=== PATIENT | male | born 1960 | race African-American/Black ===

== ENCOUNTER 2017-01-19 12:18 | Emergency (ER) | payer SELFPAY ==
--- NOTE | 2017-01-19 14:17 | RAD ---
TWO VIEWS CHEST: Comparison: 12-04-12 History: Productive cough and headache. FINDINGS: Two views of the chest show normal sized cardiomediastinal silhouette. There is no evidence of consol idation, mass, or pleural effusion. The bones are unremarkable. IMPRESSION: No evidence of acute cardiopulmonary disease. POS: [facility]
== END 2017-01-19 14:02 | disposition home or self-care (01) ==
LOC: ERS 12:18
DX: J06.9 Acute upper respiratory infection, unspecified (principal); F32.9 Major depressive disorder, single episode, unspecified; I10 Essential (primary) hypertension; Z79.899 Other long term (current) drug therapy
CPT/HCPCS: 71020

== ENCOUNTER 2017-02-21 14:19 | Emergency (ER) | payer SELFPAY ==
--- NOTE | 2017-02-21 15:01 | RAD ---
THREE VIEWS OF RIGHT ANKLE: DATE: 02/21/17. COMPARISON: 01/17/16. HISTORY: Slipped and fell, pain. FINDINGS: There is a stable round metallic structure associated with the cortex of the medial malleolus. No fr acture or evidence of dislocation seen. IMPRESSION: No acute osseous abnormality. POS: [facility]
== END 2017-02-21 16:05 | disposition home or self-care (01) ==
LOC: ERS 14:19
DX: S96.911A Strain of unspecified muscle and tendon at ankle and foot level, right foot, initial encounter (principal); F32.9 Major depressive disorder, single episode, unspecified; I10 Essential (primary) hypertension; Z79.899 Other long term (current) drug therapy; W19.XXXA Unspecified fall, initial encounter

== ENCOUNTER 2017-03-19 23:26 | Emergency (ER) | payer SELFPAY ==
[2017-03-20 00:18] LABS: #Basophils 0.1 thou/uL (0.0-0.2); #Eosinphils 0.4 thou/uL (0.0-0.7); #Lymphocytes 2.8 thou/uL (1.20-3.40); #Monocytes 0.5 thou/uL (0.11-0.59); #Neutrophils 4.7 thou/uL (1.40-6.50); %Basophils 0.8 % (0.0-1.0); %Eosinophils 4.5 % (0.0-10.0); %Lymphocytes 32.9 % (21.0-51.0); %Monocytes 6.3 % (0.0-10.0); %Neutrophils 55.5 % (42.0-75.0); Hemoglobin 16.4 g/dL (14.0-18.0); Mean Corpuscular HGB CONC 33.6 g/dL (32.0-36.0); Mean Corpuscular Hemoglobin 32.9 pg (27.0-31.0); Mean Corpuscular Volume 98.1 fl (80.0-94.0); Mean Platelet Volume 7.8 fL (7.4-10.4); Platelet Count 192 thou/uL (130-400); RBC Distribution Width 12.5 % (11.5-14.5); Red Blood Cell (RBC) Count 4.97 mill/uL (4.70-6.10); White Blood Cell (WBC) Count 8.5 thou/uL (4.8-10.8)
[2017-03-20] MEDS ORDERED: Proparacaine 0.5% Opth 15 ML BOT ONE (00:23)
[2017-03-20] MEDS ORDERED: Nitroglycerin 0.4 MG TAB (25 Tab Bottle) ONE (00:31)
[2017-03-20 00:34] LABS: ALT (SGPT) 15 U/L (8-55); AST (SGOT) 22 U/L (5-34); Albumin 3.9 g/dL (3.5-5.0); Alkaline Phosphatase 74 U/L (40-150); Anion Gap 11 mmol/L (10-20); BUN (Urea Nitrogen) 21 mg/dL (8.4-25.7); Bilirubin, Total 0.4 mg/dL (0.2-1.2); Calc. Creatinine Clearance 0 mL/min (70-130); Calcium 9.2 mg/dL (7.8-10.44); Carbon Dioxide 25 mmol/L (22-29); Chloride 108 mmol/L (98-107); Estimated GFR-MDRD 79; Globulin 3.3 g/dL (2.4-3.5); Glucose 92 mg/dL (70-105); Potassium 4.5 mmol/L (3.5-5.1); Protein, Total 7.2 g/dL (6.0-8.3); Sodium 139 mmol/L (136-145)
[2017-03-20 00:38] LABS: CKMB 1.4 ng/mL (0-6.6)
[2017-03-20] MEDS ORDERED: hydrALAZINE 20 MG/ML VIAL ONE (01:45)
[2017-03-20] MEDS ORDERED: diphenhydrAMINE 50 MG/ML VIAL ONE (02:19)
[2017-03-20] MEDS ORDERED: Metoclopramide HCl 10 MG/2 ML VIAL ONE (02:19)
[2017-03-20 02:57] LABS: Troponin I Less than 0.010 ng/mL (< 0.028)
[2017-03-20] MEDS ORDERED: Lisinopril 10 MG TAB ONE (03:46)
[2017-03-20] MEDS ORDERED: Ketorolac Tromethamine 30 MG/ML VIAL ONE (04:09)
--- NOTE | 2017-03-20 07:37 | RAD ---
RADIOGRAPH CHEST 1 VIEW: HISTORY: 56-year-old male with chest pain. FINDINGS: There are no air space densities, pulmonary edema, pneumothorax, or cardiomegaly. The lateral costop hrenic angles are sharp. IMPRESSION: No acute cardiopulmonary findings. jn [] POS: [facility]
--- NOTE | 2017-03-20 08:14 | CT ---
PRELIMINARY REPORT/[facility]/EMERGENCY AFTER HOURS PROCEDURE: EXAM: CT Head Without Intravenous Contrast CLINICAL HISTORY: 56 years old, male; Pain; Headache; Patient HX: Er 9; 56 yo m presents to ed C/O sudden onset worseni ng l eye pain that started yesterday morning. Pt also reports headache and jaw pain since yesterday, and reports short episode of chest pain today which has since resolved. Denies n/v, denies fever. TECHNIQUE: Axial computed tomography images of the head/brain without intravenous contrast. COMPARISON: No relevant prior studies available. FINDINGS: Brain: Mild volume loss No hemorrhage. No significant white matter disease. No edema. Ventricles: A cavum septum pellucidum at vergae is noted, a normal variant.No ventriculomegaly. Bones/joints: Unremarkable. No acute fracture. Soft tissues: Unremarkable. Sinuses: minimal mucosal thickening. No acute sinusitis. Mastoid air cells: Unremarkable as visualized. No mastoid effusion. IMPRESSION: No intracranial hemorrhage.Please see discussion above. Thank you for allowing us to participate in the care of your patient. Dictated and Authenticated by: Vasquez Gonzalez MD 03/20/2017 12:53 AM Central Time ([place] & [place]) FINAL REPORT EMERGENCY HOURS STUDY: CT BRAIN NONCONTRAST: HISTORY: A 56-year-old male with sudden-onset headache. FINDINGS: There is no midline shift or any other mass effect. There is no evidence of acute intracranial hemor rhage, large cortical infarct, obstructive hydrocephalus, or extraaxial fluid collection. The calvar ium is intact. This report agrees with preliminary report by [facility]. IMPRESSION: No acute intracranial findings. jn [] POS: [facility]
== END 2017-03-20 05:32 | disposition home or self-care (01) ==
LOC: ERS 23:26
DX: K02.9 Dental caries, unspecified (principal); R07.89 Other chest pain; R51 Headache; K03.81 Cracked tooth; I10 Essential (primary) hypertension; F32.9 Major depressive disorder, single episode, unspecified; Z79.899 Other long term (current) drug therapy
CPT/HCPCS: 36415; 70450; 71045; 80053; 82553; 83880; 84484; 85025; 93005; 96374; 96375; J0360; J1200; J1885; J2270; J2765

== ENCOUNTER 2017-05-22 10:47 | Emergency (ER) | payer OTHER, SELFPAY ==
[2017-05-22] MEDS ORDERED: Ketorolac Tromethamine 30 MG/ML VIAL ONE (12:19)
[2017-05-22] MEDS ORDERED: Acetaminophen 500 MG TAB ONE ×2 (13:38→13:39)
[2017-05-22] MEDS ORDERED: Lisinopril 10 MG TAB ONE (13:38)
--- NOTE | 2017-05-22 13:59 | RAD ---
TWO VIEWS OF THE RIGHT TIBIA/FIBULA. COMPARISON: None. HISTORY: Right leg pain. FINDINGS: Two views of the right tibia/fibula show no evidence of acute fracture or dislocation. A radiopaque structure adjacent to the medial malleolus is likely from prior surgery. No focal soft tissue swelli ng is seen. IMPRESSION: No evidence of acute osseous abnormality. POS: [facility]
--- NOTE | 2017-05-22 14:01 | RAD ---
THREE VIEWS LUMBOSACRAL SPINE: COMPARISON: 06/04/16. HISTORY: Chronic back pain. FINDINGS: Three views of the lumbosacral spine shows normal height and alignment of the vertebral bodies and in tervertebral disks without fracture or subluxation. No significant degenerative changes are seen. N o change has compared to the prior radiograph. IMPRESSION: Unremarkable exam. POS: [facility]
== END 2017-05-22 13:46 | disposition home or self-care (01) ==
LOC: ERS 10:47
DX: M54.5 Low back pain (principal); L98.9 Disorder of the skin and subcutaneous tissue, unspecified; I10 Essential (primary) hypertension; F32.9 Major depressive disorder, single episode, unspecified; Z79.899 Other long term (current) drug therapy
CPT/HCPCS: 72100; 96372; J1885

== ENCOUNTER 2017-06-29 13:48 | Emergency (ER) | payer SELFPAY | END 2017-06-29 14:04 | disposition left against medical advice (07) | LOC: ERS 13:48 | DX: Z53.21 Procedure and treatment not carried out due to patient leaving prior to being seen by health care provider (principal) ==

== ENCOUNTER 2017-07-12 12:31 | Emergency (ER) | payer SELFPAY | END 2017-07-12 13:18 | disposition home or self-care (01) | LOC: ERS 12:31 | DX: M54.12 Radiculopathy, cervical region (principal); M54.41 Lumbago with sciatica, right side; I10 Essential (primary) hypertension; F32.9 Major depressive disorder, single episode, unspecified | CPT/HCPCS: 99283 ==

== ENCOUNTER 2017-09-10 15:38 | Emergency (ER) | payer SELFPAY | END 2017-09-10 16:43 | disposition home or self-care (01) | LOC: ERS 15:38 | DX: L02.212 Cutaneous abscess of back [any part, except buttock and flank] (principal); L02.01 Cutaneous abscess of face; I10 Essential (primary) hypertension; F32.9 Major depressive disorder, single episode, unspecified; Z79.899 Other long term (current) drug therapy | CPT/HCPCS: 10061 ==

== ENCOUNTER 2017-10-25 15:06 | Emergency (ER) | payer SELFPAY ==
[2017-10-25] MEDS ORDERED: Lidocaine 1% w/Epinephrine 1:100K 20 ML VIAL ONE (17:09)
[2017-10-25] MEDS ORDERED: Adacel (T-DAP) 0.5 ML VIAL ONE (17:50)
[2017-10-25] MEDS ORDERED: Lisinopril 10 MG TAB ONE (18:08)
== END 2017-10-25 18:10 | disposition home or self-care (01) ==
LOC: ERS 15:06
DX: L02.31 Cutaneous abscess of buttock (principal); I10 Essential (primary) hypertension; F32.9 Major depressive disorder, single episode, unspecified; Z79.899 Other long term (current) drug therapy
CPT/HCPCS: 10061; 87070; 87077; 87186; 87205; 90471; 90715; J2001

== ENCOUNTER 2017-11-29 05:03 | Emergency (ER) | payer SELFPAY ==
[2017-11-29] MEDS ORDERED: Lidocaine 1% w/Epinephrine 1:100K 20 ML VIAL ONE (05:20)
[2017-11-29] MEDS ORDERED: Bacitracin Zinc 1 Packet ONE (05:42)
[2017-11-29] MEDS ORDERED: Acetaminophen 500 MG TAB ONE (05:47)
== END 2017-11-29 06:00 | disposition home or self-care (01) ==
LOC: ERS 05:06
DX: S61.412A Laceration without foreign body of left hand, initial encounter (principal); I10 Essential (primary) hypertension; F32.9 Major depressive disorder, single episode, unspecified; Z79.899 Other long term (current) drug therapy; W25.XXXA Contact with sharp glass, initial encounter
CPT/HCPCS: 12002; J2001

== ENCOUNTER 2018-02-26 12:13 | Emergency (ER) | payer SELFPAY ==
[2018-02-26 13:17] LABS: #Basophils 0.1 thou/uL (0.0-0.2); #Eosinphils 0.4 thou/uL (0.0-0.7); #Lymphocytes 2.1 thou/uL (1.20-3.40); #Monocytes 0.5 thou/uL (0.11-0.59); #Neutrophils 5.6 thou/uL (1.40-6.50); %Basophils 1.5 % (0.0-1.0); %Eosinophils 4.8 % (0.0-10.0); %Lymphocytes 23.5 % (21.0-51.0); %Monocytes 6.2 % (0.0-10.0); %Neutrophils 64.1 % (42.0-75.0); Hemoglobin 15.1 g/dL (14.0-18.0); Mean Corpuscular HGB CONC 32.7 g/dL (32.0-36.0); Mean Corpuscular Hemoglobin 31.9 pg (27.0-31.0); Mean Corpuscular Volume 97.5 fL (78.0-98.0); Mean Platelet Volume 7.6 fL (7.4-10.4); Platelet Count 228 thou/uL (130-400); RBC Distribution Width 12.2 % (11.5-14.5); Red Blood Cell (RBC) Count 4.72 mill/uL (4.70-6.10); White Blood Cell (WBC) Count 8.8 thou/uL (4.8-10.8)
[2018-02-26 13:41] LABS: ALT (SGPT) 16 U/L (8-55); AST (SGOT) 21 U/L (5-34); Albumin 3.8 g/dL (3.5-5.0); Alkaline Phosphatase 72 U/L (40-150); Anion Gap 13 mmol/L (10-20); BUN (Urea Nitrogen) 15 mg/dL (8.4-25.7); Bilirubin, Total 0.3 mg/dL (0.2-1.2); Calc. Creatinine Clearance 0 mL/min (70-130); Calcium 8.9 mg/dL (7.8-10.44); Carbon Dioxide 21 mmol/L (22-29); Chloride 108 mmol/L (98-107); Estimated GFR-MDRD 78; Globulin 2.9 g/dL (2.4-3.5); Glucose 85 mg/dL (70-105); Potassium 4.4 mmol/L (3.5-5.1); Protein, Total 6.7 g/dL (6.0-8.3); Sodium 138 mmol/L (136-145)
[2018-02-26] MEDS ORDERED: Ondansetron PF 4 MG/2 ML Vial ONE (14:16)
[2018-02-26] MEDS ORDERED: Ondansetron ODT 4 MG TAB ONE (14:16)
--- NOTE | 2018-02-26 15:21 | RAD ---
PA AND LATERAL VIEWS CHEST: HISTORY: Vomiting and diarrhea. FINDINGS: Comparison is made with the exam of 03/19/2017. The heart size is normal. The lungs are expanded without focal areas of consolidation, pneumothorace s, or pleural effusions. No acute osseous abnormalities are seen. IMPRESSION: No radiographic evidence of acute cardiopulmonary process. POS: [facility]
== END 2018-02-26 15:10 | disposition home or self-care (01) ==
LOC: ERS 12:13
DX: R11.2 Nausea with vomiting, unspecified (principal); R05 Cough; R19.7 Diarrhea, unspecified; F43.10 Post-traumatic stress disorder, unspecified; F32.9 Major depressive disorder, single episode, unspecified; I10 Essential (primary) hypertension; Z79.899 Other long term (current) drug therapy
CPT/HCPCS: 36415; 71046; 80053; 85025; J2405; Q0162

== ENCOUNTER 2018-05-12 12:47 | Emergency (ER) | payer SELFPAY ==
[2018-05-12] MEDS ORDERED: Nitroglycerin 0.4 MG TAB 1 EACH ONE (13:15)
[2018-05-12] MEDS ORDERED: Nitroglycerin 2% Ointment 1 INCH/1 GM Packet ONE (13:15)
[2018-05-12] MEDS ORDERED: Aspirin Chewable 81 MG TAB ONE (13:15)
[2018-05-12 13:16] LABS: #Basophils 0.1 thou/uL (0.0-0.2); #Eosinphils 0.4 thou/uL (0.0-0.7); #Lymphocytes 2.1 thou/uL (1.20-3.40); #Monocytes 0.6 thou/uL (0.11-0.59); #Neutrophils 11.5 thou/uL (1.40-6.50); %Basophils 0.7 % (0.0-1.0); %Eosinophils 2.4 % (0.0-10.0); %Lymphocytes 14.2 % (21.0-51.0); %Monocytes 3.9 % (0.0-10.0); %Neutrophils 78.9 % (42.0-75.0); Hemoglobin 15.8 g/dL (14.0-18.0); Mean Corpuscular HGB CONC 33.5 g/dL (32.0-36.0); Mean Corpuscular Hemoglobin 32.6 pg (27.0-31.0); Mean Corpuscular Volume 97.4 fL (78.0-98.0); Mean Platelet Volume 7.9 fL (7.4-10.4); Platelet Count 220 thou/uL (130-400); RBC Distribution Width 12.6 % (11.5-14.5); Red Blood Cell (RBC) Count 4.85 mill/uL (4.70-6.10); White Blood Cell (WBC) Count 14.6 thou/uL (4.8-10.8)
--- NOTE | 2018-05-12 13:22 | RAD ---
FRadiograph chest one view: HISTORY: 57-year-old male with acute chest pain FINDINGS: The visualized lung easley are clear. The cardiomediastinal silhouette is normal. No pneumothorax. IMPRESSION: No acute cardiopulmonary findings.
[2018-05-12 13:35] LABS: ALT (SGPT) 16 U/L (8-55); AST (SGOT) 23 U/L (5-34); Albumin 3.6 g/dL (3.5-5.0); Alkaline Phosphatase 52 U/L (40-150); Anion Gap 13 mmol/L (10-20); BUN (Urea Nitrogen) 9 mg/dL (8.4-25.7); Bilirubin, Total 0.7 mg/dL (0.2-1.2); CK (CPK) 153 U/L (30-200); Calc. Creatinine Clearance 0 mL/min (70-130); Calcium 8.8 mg/dL (7.8-10.44); Carbon Dioxide 22 mmol/L (22-29); Chloride 107 mmol/L (98-107); Estimated GFR-MDRD Greater than 90; Globulin 2.9 g/dL (2.4-3.5); Glucose 84 mg/dL (70-105); Lipase 9 U/L (8-78); Protein, Total 6.5 g/dL (6.0-8.3); Sodium 137 mmol/L (136-145)
--- NOTE | 2018-05-12 14:06 | CT ---
FCT abdomen with contrast CT pelvis with contrast: 05/12/2018 at 1:33 PM HISTORY: 57-year-old male with diffuse abdominal pain FINDINGS: The appendix, bilateral kidneys, adrenals, pancreas, liver, abdominal aorta, and urinary bladder, are normal. Multiple diverticula throughout the entire colon. No evidence of diverticulitis. No small fan wel dilation. No ascites or pneumoperitoneum. No consolidation at lung bases. No pleural effusion. IMPRESSION: 1. Pancolonic diverticulosis without diverticulitis. 2. Otherwise negative.
[2018-05-12] MEDS ORDERED: Ondansetron PF 4 MG/2 ML Vial ONE (14:10)
[2018-05-12] MEDS ORDERED: Iopamidol 370 76% 100 ML VIAL ONE (15:16)
== END 2018-05-12 17:46 | disposition home or self-care (01) ==
LOC: ERS 12:47
DX: R07.9 Chest pain, unspecified (principal); I10 Essential (primary) hypertension; F32.9 Major depressive disorder, single episode, unspecified; F43.10 Post-traumatic stress disorder, unspecified; F17.210 Nicotine dependence, cigarettes, uncomplicated; Z79.899 Other long term (current) drug therapy
CPT/HCPCS: 36415; 71045; 74177; 80053; 82550; 83690; 84484; 85025; 93005; 94760; 96361; 96374; J2405; Q9967

== ENCOUNTER 2018-07-24 10:11 | Emergency (ER) | payer SELFPAY ==
[2018-07-24 11:09] LABS: #Basophils 0.1 thou/uL (0.0-0.2); #Eosinphils 0.4 thou/uL (0.0-0.7); #Monocytes 0.4 thou/uL (0.11-0.59); #Neutrophils 3.8 thou/uL (1.40-6.50); %Basophils 1.2 % (0.0-1.0); %Eosinophils 6.3 % (0.0-10.0); %Lymphocytes 29.7 % (21.0-51.0); %Monocytes 6.6 % (0.0-10.0); %Neutrophils 56.3 % (42.0-75.0); Hemoglobin 15.2 g/dL (14.0-18.0); Mean Corpuscular HGB CONC 32.1 g/dL (32.0-36.0); Mean Corpuscular Hemoglobin 31.6 pg (27.0-31.0); Mean Corpuscular Volume 98.2 fL (78.0-98.0); Mean Platelet Volume 7.6 fL (7.4-10.4); Platelet Count 208 thou/uL (130-400); RBC Distribution Width 12.2 % (11.5-14.5); Red Blood Cell (RBC) Count 4.82 mill/uL (4.70-6.10); White Blood Cell (WBC) Count 6.7 thou/uL (4.8-10.8)
[2018-07-24 11:35] LABS: ALT (SGPT) 14 U/L (8-55); AST (SGOT) 18 U/L (5-34); Albumin 3.4 g/dL (3.5-5.0); Alkaline Phosphatase 73 U/L (40-150); Anion Gap 10 mmol/L (10-20); BUN (Urea Nitrogen) 18 mg/dL (8.4-25.7); Bilirubin, Total 0.3 mg/dL (0.2-1.2); Calc. Creatinine Clearance 0 mL/min (70-130); Calcium 8.9 mg/dL (7.8-10.44); Carbon Dioxide 26 mmol/L (22-29); Chloride 110 mmol/L (98-107); Estimated GFR-MDRD 77; Globulin 2.4 g/dL (2.4-3.5); Glucose 80 mg/dL (70-105); Lipase 51 U/L (8-78); Potassium 4.7 mmol/L (3.5-5.1); Protein, Total 5.8 g/dL (6.0-8.3); Sodium 141 mmol/L (136-145)
[2018-07-24] MEDS ORDERED: Ondansetron PF 4 MG/2 ML Vial ONE (11:38)
[2018-07-24] MEDS ORDERED: Ketorolac Tromethamine 30 MG/ML VIAL ONE (11:38)
== END 2018-07-24 15:05 | disposition home or self-care (01) ==
LOC: ERS 10:11
DX: R11.2 Nausea with vomiting, unspecified (principal); R19.7 Diarrhea, unspecified; I10 Essential (primary) hypertension; F32.9 Major depressive disorder, single episode, unspecified; F17.210 Nicotine dependence, cigarettes, uncomplicated; Z79.899 Other long term (current) drug therapy
CPT/HCPCS: 36415; 80053; 83690; 85025; 96361; 96374; 96375; J1885; J2405

== ENCOUNTER 2019-03-25 15:06 | Emergency (ER) | payer SELFPAY ==
[~2019-03-25 15:06] MED LIST: Iopamidol-370 76% 500 ML 1 ML ONE
[2019-03-25 16:29] LABS: #Basophils 0.1 thou/uL (0.0-0.2); #Eosinphils 0.4 thou/uL (0.0-0.7); #Lymphocytes 2.1 thou/uL (1.20-3.40); #Monocytes 0.5 thou/uL (0.11-0.59); #Neutrophils 3.5 thou/uL (1.40-6.50); %Basophils 1.1 % (0.0-1.0); %Eosinophils 6.3 % (0.0-10.0); %Lymphocytes 31.3 % (21.0-51.0); %Monocytes 7.6 % (0.0-10.0); %Neutrophils 53.8 % (42.0-75.0); Hemoglobin 15.6 g/dL (14.0-18.0); Mean Corpuscular HGB CONC 34.1 g/dL (32.0-36.0); Mean Corpuscular Hemoglobin 33.2 pg (27.0-31.0); Mean Corpuscular Volume 97.2 fL (78.0-98.0); Mean Platelet Volume 7.7 fL (7.4-10.4); Platelet Count 249 thou/uL (130-400); RBC Distribution Width 12.2 % (11.5-14.5); Red Blood Cell (RBC) Count 4.71 mill/uL (4.70-6.10); White Blood Cell (WBC) Count 6.6 thou/uL (4.8-10.8)
[2019-03-25 16:49] LABS: ALT (SGPT) 34 U/L (8-55); AST (SGOT) 38 U/L (5-34); Alkaline Phosphatase 75 U/L (40-110); Anion Gap 10 mmol/L (10-20); BUN (Urea Nitrogen) 17 mg/dL (8.4-25.7); Bilirubin, Total 0.5 mg/dL (0.2-1.2); Calc. Creatinine Clearance 0 mL/min (70-130); Calcium 8.9 mg/dL (7.8-10.44); Carbon Dioxide 25 mmol/L (22-29); Chloride 107 mmol/L (98-107); Estimated GFR-MDRD 59; Globulin 3.5 g/dL (2.4-3.5); Glucose 86 mg/dL (70-105); Lipase 13 U/L (8-78); Potassium 4.3 mmol/L (3.5-5.1); Protein, Total 7.5 g/dL (6.0-8.3); Sodium 138 mmol/L (136-145)
[2019-03-25] MEDS ORDERED: Ketorolac Tromethamine 30 MG/ML VIAL ONE (19:17)
[2019-03-25] MEDS ORDERED: Ondansetron PF 4 MG/2 ML Vial ONE (19:17)
--- NOTE | 2019-03-25 20:46 | CT ---
CT ABDOMEN AND PELVIS WITH IV CONTRAST: History: Abdominal pain. Comparison: 05-12-18 FINDINGS: There are mild dependent changes of the lung bases. The gallbladder is contracted without evidence of calcified gallstones. The liver, spleen, pancreas, adrenal glands, and kidneys are normal. No free a ir, free fluid, or lymphadenopathy is seen in the abdomen or pelvis. The prostate is enlarged. The small bowel loops are not abnormally dilated. An normal appendix is present. There is colonic div erticulosis without evidence of diverticulitis. No abnormal loculated air fluid collection is noted t o suggest abscess formation. There are vascular calcifications without evidence of aneurysmal dilatation of the abdominal aorta. T here are mild degenerative changes in the lower lumbar spine. IMPRESSION: No acute process. POS: [facility]
== END 2019-03-25 20:45 | disposition home or self-care (01) ==
LOC: ERS 15:06
DX: R10.9 Unspecified abdominal pain (principal); R11.2 Nausea with vomiting, unspecified; I10 Essential (primary) hypertension; F32.9 Major depressive disorder, single episode, unspecified; F43.10 Post-traumatic stress disorder, unspecified; F17.200 Nicotine dependence, unspecified, uncomplicated; Z79.899 Other long term (current) drug therapy
CPT/HCPCS: 36415; 74177; 80053; 83690; 85025; 96361; 96374; 96375; J1885; J2405; Q9967

== ENCOUNTER 2020-04-03 00:50 | Emergency (ER) | payer MEDICARE, OTHER ==
[2020-04-03 01:33] LABS: #Basophils 0.1 thou/uL (0.0-0.2); #Eosinphils 0.5 thou/uL (0.0-0.7); #Lymphocytes 2.4 thou/uL (1.20-3.40); #Monocytes 0.6 thou/uL (0.11-0.59); #Neutrophils 4.1 thou/uL (1.40-6.50); %Basophils 1.5 % (0.0-1.0); %Eosinophils 6.4 % (0.0-10.0); %Lymphocytes 31.2 % (21.0-51.0); %Monocytes 8.1 % (0.0-10.0); %Neutrophils 52.9 % (42.0-75.0); Hemoglobin 15.6 g/dL (14.0-18.0); Mean Corpuscular HGB CONC 34.9 g/dL (32.0-36.0); Mean Corpuscular Hemoglobin 33.4 pg (27.0-31.0); Mean Corpuscular Volume 95.7 fL (78.0-98.0); Mean Platelet Volume 7.8 fL (7.4-10.4); Platelet Count 267 thou/uL (130-400); Red Blood Cell (RBC) Count 4.67 mill/uL (4.70-6.10); White Blood Cell (WBC) Count 7.7 thou/uL (4.8-10.8)
[2020-04-03 02:20] LABS: ALT (SGPT) 33 U/L (8-55); AST (SGOT) 29 U/L (5-34); Alkaline Phosphatase 121 U/L (40-110); Anion Gap 18 mmol/L (10-20); BUN (Urea Nitrogen) 22 mg/dL (8.4-25.7); Bilirubin, Total 0.3 mg/dL (0.2-1.2); Calc. Creatinine Clearance 0 mL/min (70-130); Calcium 9.1 mg/dL (7.8-10.44); Carbon Dioxide 19 mmol/L (22-29); Chloride 107 mmol/L (98-107); Globulin 4.3 g/dL (2.4-3.5); Glucose 99 mg/dL (70-105); Lipase 24 U/L (8-78); Potassium 4.4 mmol/L (3.5-5.1); Protein, Total 8.3 g/dL (6.0-8.3); Sodium 140 mmol/L (136-145)
[2020-04-03 02:42] LABS: Bilirubin Negative (Negative); Blood, Urine Negative (Negative); Clarity Clear (Clear); Glucose, Urine (Dipstick) Normal (Negative); Ketone, Urine Negative (Negative); Leukocyte Negative Leu/uL (Negative); Nitrite Negative (Negative); Protein, Urine (Dipstick) Negative (Neg-Trace); Specific Gravity, Urine 1.021 (1.002-1.036); Urobilinogen Normal mg/dL (Less than 2)
[2020-04-03] MEDS ORDERED: Morphine 4 MG/ML VIAL ONE (03:34)
[2020-04-03] MEDS ORDERED: predniSONE 20 MG TAB ONE (03:35)
--- NOTE | 2020-04-03 08:01 | CT ---
PRELIMINARY REPORT/[facility]/EMERGENCY AFTER HOURS PROCEDURE: EXAM: CT Abdomen and Pelvis with Intravenous Contrast CLINICAL HISTORY: PT HAD A HERNIA REPAIR ON 01/21/20 AFTER VOMITING FOR 561 DAYS IN A ROW. PT STATES, "HE HAS BEEN HAVING PAIN AGAIN AND VOMITED BLOOD TODAY. TECHNIQUE: Axial computed tomography images of the abdomen and pelvis with intravenous contrast. 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 LIVER: Unremarkable. GALLBLADDER AND BILE DUCTS: Gallbladder is contracted. No calcified stones. No biliary ductal dilatio n. PANCREAS: Unremarkable. SPLEEN: Unremarkable. ADRENAL GLANDS: Unremarkable. KIDNEYS, URETERS, AND BLADDER: Unremarkable. No hydronephrosis or nephrolithiasis. No ureteral or kristin dder calculi. STOMACH AND BOWEL: No obstruction. No wall thickening. Mild colonic diverticulosis. No CT evidence of colitis or acute diverticulitis. Stomach fundus is well evaluated due to incomplete distention. There is a single slightly linear small hyperdensity within the stomach adjacent to the posterior wal l of the body which is nonspecific, possibly representing dense ingested content. APPENDIX: No CT evidence for appendicitis. PERITONEUM: No free fluid. No free air. LYMPH NODES: There is mild hazy increased attenuation of the central mesenteric fat along the distrib ution of the mid SMA with multiple small subcentimeter lymph nodes measuring less than 5 mm in short axis dimension. No suspicious mesenteric lymph nodes. REPRODUCTIVE: Unremarkable as visualized. VASCULATURE: No aortic aneurysm. BONES: No fracture or suspicious osseous abnormality. Bilateral transitional lumbosacral anatomy with pseudoarticulation and probable partial sacralization of L5. ABDOMINAL WALL AND SOFT TISSUES: Moderate diastases recti, appearing new since the prior study withou t discrete fascial defect. Prominent fat along the right inguinal canal may represent a small fat-containing inguinal hernia. IMPRESSION: 1. No obvious acute findings to explain the patient's hematemesis. Please note that the study was not optimized for detecting GI bleeds. 2. Findings consistent with mild mesenteric panniculitis. This can potentially be a source of nonspec ific abdominal pain. 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 COMPARISON: 03/25/2019. HISTORY: Hernia repair, vomiting, pain. FINDINGS: Imaged lung bases unremarkable. No free intraperitoneal air or fluid. The superior most aspect of the liver dome is not fully visualized. No focal liver lesion. Gallbladder is contracted. Spleen, pancreas, adrenal glands, and kidneys appear unremarkable. Evaluation of the bowel is limited without oral contrast media. There is diverticulosis of the descending colon with no evidence for diverticulitis. Right-sided dive rticulosis noted as well. Appendix appears normal. No evidence for bowel obstruction. No focal bowel inflammatory change. There is a nonobstructing broad-based umbilical hernia containing fat and nonobstructed small bowel. Vascular structures of abdomen and pelvis appear patent. No abdominal or pelvic lymphadenopathy. Review of the osseous structures demonstrates no acute findings. There is minimal stable fat stranding of the mesentery centrally with associated mildly prominent nod es of uncertain clinical significance. IMPRESSION: No evidence for free intraperitoneal air or bowel obstruction. Diverticulosis without evidence for di verticulitis. Small nonobstructing fat and bowel containing umbilical hernia. Stable mild ren prominence in the central mesentery with slight fat stranding. Transcribed Date/Time: 04/03/2020 8:24 AM
[2020-04-03] MEDS ORDERED: Iopamidol-370 76% 500 ML 1 ML ONE (11:42)
== END 2020-04-03 05:26 | disposition home or self-care (01) ==
LOC: ERS 00:50
DX: K65.4 Sclerosing mesenteritis (principal); I10 Essential (primary) hypertension; F17.200 Nicotine dependence, unspecified, uncomplicated; Z79.899 Other long term (current) drug therapy
CPT/HCPCS: 36415; 74177; 80053; 81003; 83690; 85025; 93005; 96374; J2270; J7512; Q9967

== ENCOUNTER 2020-06-02 15:21 | Emergency (ER) | payer MEDICARE, OTHER ==
[2020-06-02 16:32] LABS: SARS-CoV-2 NAA Rapid Test Not Detected (NotDetected)
[2020-06-02 17:10] LABS: #Basophils 0.1 thou/uL (0.0-0.2); #Eosinphils 0.4 thou/uL (0.0-0.7); #Lymphocytes 1.7 thou/uL (1.20-3.40); #Monocytes 0.6 thou/uL (0.11-0.59); #Neutrophils 3.7 thou/uL (1.40-6.50); %Basophils 0.9 % (0.0-1.0); %Eosinophils 5.6 % (0.0-10.0); %Lymphocytes 26.3 % (21.0-51.0); %Monocytes 9.4 % (0.0-10.0); %Neutrophils 57.8 % (42.0-75.0); Hemoglobin 13.9 g/dL (14.0-18.0); Mean Corpuscular HGB CONC 32.6 g/dL (32.0-36.0); Mean Corpuscular Hemoglobin 31.9 pg (27.0-31.0); Mean Corpuscular Volume 97.7 fL (78.0-98.0); Mean Platelet Volume 7.6 fL (7.4-10.4); Platelet Count 268 thou/uL (130-400); RBC Distribution Width 12.8 % (11.5-14.5); Red Blood Cell (RBC) Count 4.36 mill/uL (4.70-6.10); White Blood Cell (WBC) Count 6.4 thou/uL (4.8-10.8)
[2020-06-02 17:32] LABS: ALT (SGPT) 23 U/L (8-55); AST (SGOT) 31 U/L (5-34); Albumin 3.6 g/dL (3.5-5.0); Alkaline Phosphatase 73 U/L (40-110); Anion Gap 13 mmol/L (10-20); BUN (Urea Nitrogen) 14 mg/dL (8.4-25.7); Bilirubin, Total 0.3 mg/dL (0.2-1.2); Calc. Creatinine Clearance 0 mL/min (70-130); Calcium 8.9 mg/dL (7.8-10.44); Carbon Dioxide 24 mmol/L (22-29); Chloride 110 mmol/L (98-107); Globulin 2.7 g/dL (2.4-3.5); Glucose 96 mg/dL (70-105); Potassium 4.8 mmol/L (3.5-5.1); Protein, Total 6.3 g/dL (6.0-8.3); Sodium 142 mmol/L (136-145)
== END 2020-06-02 18:21 | disposition home or self-care (01) ==
LOC: ERS 15:21
DX: J20.9 Acute bronchitis, unspecified (principal); Z79.899 Other long term (current) drug therapy; Z79.52 Long term (current) use of systemic steroids; Z79.891 Long term (current) use of opiate analgesic; I10 Essential (primary) hypertension; F17.200 Nicotine dependence, unspecified, uncomplicated
CPT/HCPCS: 0240U; 71045; 80053; 83605; 83880; 84484; 85025; 87040; 93005; 94664; 94760; 36415

== ENCOUNTER 2022-11-22 18:23 | Emergency (ER) | payer OTHER, MEDICARE, MEDICAID ==
[2022-11-22 19:11] LABS: #Eosinphils 0.4 thou/uL (0.0-0.7); #Monocytes 0.6 thou/uL (0.11-0.59); %Basophils 0.7 % (0.0-1.0); %Eosinophils 6.3 % (0.0-10.0); %Lymphocytes 32.1 % (21.0-51.0); %Monocytes 10.1 % (0.0-10.0); %Neutrophils 50.6 % (42.0-75.0); Hematocrit 45.9 % (42.0-52.0); Hemoglobin 15.9 g/dL (14.0-18.0); Mean Corpuscular HGB CONC 34.6 g/dL (32.0-36.0); Mean Corpuscular Hemoglobin 33.3 pg (27.0-31.0); Mean Corpuscular Volume 96.2 fl (78.0-98.0); Mean Platelet Volume 10.1 fL (7.4-10.4); Platelet Count 225 10x3/uL (130-400); RBC Distribution Width 13.8 % (11.5-14.5); Red Blood Cell (RBC) Count 4.77 mill/uL (4.70-6.10); White Blood Cell (WBC) Count 5.8 10x3/uL (4.8-10.8)
[2022-11-22 19:39] LABS: ALT (SGPT) 24 U/L (8-55); AST (SGOT) 28 U/L (5-34); Albumin 4.6 g/dL (3.5-5.0); Alkaline Phosphatase 88 U/L (40-110); Anion Gap 15 mmol/L (10-20); BUN (Urea Nitrogen) 14 mg/dL (8.4-25.7); Bilirubin, Total 0.3 mg/dL (0.2-1.2); Calc. Creatinine Clearance 0 mL/min (70-130); Calcium 9.9 mg/dL (7.8-10.44); Carbon Dioxide 20 mmol/L (22-29); Chloride 105 mmol/L (98-107); Estimated GFR 60; Globulin 3.7 g/dL (2.4-3.5); Glucose 113 mg/dL (70-105); Lipase 23 U/L (8-78); Magnesium 1.9 mg/dL (1.6-2.6); Potassium 4.1 mmol/L (3.5-5.1); Protein, Total 8.3 g/dL (6.0-8.3); Sodium 136 mmol/L (136-145)
[2022-11-22 19:43] LABS: Troponin I Less than 0.010 ng/mL (< 0.028)
== END 2022-11-22 20:39 | disposition home or self-care (01) ==
LOC: ERS 18:23
DX: J06.9 Acute upper respiratory infection, unspecified (principal); I10 Essential (primary) hypertension; F17.200 Nicotine dependence, unspecified, uncomplicated
CPT/HCPCS: 36415; 71046; 80053; 83690; 83735; 83880; 84484; 85025; 93005

== ENCOUNTER 2023-03-04 13:15 | Emergency (ER) | payer OTHER, MEDICARE ==
[~2023-03-04 13:15] MED LIST changes: -Iopamidol-370 76% 500 ML 1 ML ONE; +Iopamidol-370 76% 500 ML MDV (1 ML CHARGE) ONE
[2023-03-04 13:39] LABS: #Eosinphils 0.3 thou/uL (0.0-0.7); #Monocytes 0.8 thou/uL (0.11-0.59); #Neutrophils 3.9 thou/uL (1.40-6.50); %Basophils 0.5 % (0.0-1.0); %Eosinophils 4.1 % (0.0-10.0); %Lymphocytes 32.8 % (21.0-51.0); %Monocytes 10.6 % (0.0-10.0); %Neutrophils 51.5 % (42.0-75.0); Hematocrit 42.7 % (42.0-52.0); Hemoglobin 15.2 g/dL (14.0-18.0); Mean Corpuscular HGB CONC 35.6 g/dL (32.0-36.0); Mean Corpuscular Volume 92.8 fl (78.0-98.0); Mean Platelet Volume 9.5 fL (7.4-10.4); Platelet Count 255 10x3/uL (130-400); RBC Distribution Width 14.4 % (11.5-14.5); White Blood Cell (WBC) Count 7.5 10x3/uL (4.8-10.8)
[2023-03-04 14:02] LABS: ALT (SGPT) 23 U/L (8-55); AST (SGOT) 31 U/L (5-34); Albumin 4.1 g/dL (3.5-5.0); Alkaline Phosphatase 83 U/L (40-110); Anion Gap 17 mmol/L (10-20); BUN (Urea Nitrogen) 27 mg/dL (8.4-25.7); Bilirubin, Total 0.6 mg/dL (0.2-1.2); Calc. Creatinine Clearance 0 mL/min (70-130); Calcium 9.8 mg/dL (7.8-10.44); Carbon Dioxide 22 mmol/L (22-29); Chloride 100 mmol/L (98-107); Estimated GFR 46; Globulin 3.9 g/dL (2.4-3.5); Glucose 91 mg/dL (70-105); Lipase 29 U/L (8-78); Potassium 4.2 mmol/L (3.5-5.1); Sodium 135 mmol/L (136-145)
[2023-03-04 14:05] LABS: Troponin I Less than 0.010 ng/mL (< 0.028)
[2023-03-04] MEDS ORDERED: Ondansetron PF 4 MG/2 ML Vial ONE (14:13)
[2023-03-04] MEDS ORDERED: Morphine 4 MG/ML VIAL ONE (14:13)
== END 2023-03-04 17:10 | disposition home or self-care (01) ==
LOC: ERS 13:15
DX: R07.89 Other chest pain (principal); R05.9 Cough, unspecified; I10 Essential (primary) hypertension; Z79.899 Other long term (current) drug therapy; F17.210 Nicotine dependence, cigarettes, uncomplicated
CPT/HCPCS: 36415; 71045; 71275; 80053; 83690; 83880; 84484; 85025; 85379; 93005; 94760; 96374; 96375; J2270; J2405; Q9967

== ENCOUNTER 2023-06-26 01:23 | Emergency (ER) | payer OTHER | END 2023-06-26 04:57 | disposition left against medical advice (07) | LOC: ERS 01:23 | DX: Z53.21 Procedure and treatment not carried out due to patient leaving prior to being seen by health care provider (principal) ==

== ENCOUNTER 2024-11-06 16:46 | Emergency (ER) | payer OTHER ==
[2024-11-06] MEDS ORDERED: Ondansetron PF 4 MG/2 ML Vial ONE (17:28)
[2024-11-06] MEDS ORDERED: Ketorolac Tromethamine 30 MG (1 mL) VIAL ONE (17:28)
[2024-11-06 17:55] LABS: #Basophils 0.03 10x3/uL (0.0-0.2); #Eosinophils 0.29 10x3/uL (0.0-0.7); #Monocytes 0.49 10x3/uL (0.11-0.59); #Neutrophils 3.83 10x3/uL (1.40-6.50); %Basophils 0.5 % (0.0-1.0); %Eosinophils 4.6 % (0.0-10.0); %Lymphocytes 25.5 % (21.0-51.0); %Monocytes 7.8 % (0.0-10.0); %Neutrophils 61.1 % (42.0-75.0); Hematocrit 41.5 % (42.0-52.0); Hemoglobin 14.5 g/dL (14.0-18.0); Mean Corpuscular Hemoglobin 31.5 pg (27.0-31.0); Mean Corpuscular Volume 90.2 fL (78.0-98.0); Platelet Count 259 10x3/uL (130-400); Red Blood Cell (RBC) Count 4.60 mill/uL (4.70-6.10); White Blood Cell (WBC) Count 6.27 10x3/uL (4.8-10.8)
[2024-11-06 18:07] LABS: ALT (SGPT) 18 U/L (Less than 45); AST (SGOT) 30 U/L (11-34); Albumin 3.7 g/dL (3.1-4.5); Alkaline Phosphatase 90 U/L (40-110); Anion Gap 14 mmol/L (10-20); BUN (Urea Nitrogen) 28 mg/dL (8.4-25.7); Bilirubin, Total 0.4 mg/dL (0.3-1.2); Calc. Creatinine Clearance 0 mL/min (70-130); Calcium 9.5 mg/dL (7.8-10.44); Carbon Dioxide 22 mmol/L (23-31); Chloride 104 mmol/L (98-107); Globulin 3.6 g/dL (2.4-3.5); Glucose 126 mg/dL (80-115); Lipase 11 U/L (8-78); Potassium 3.8 mmol/L (3.5-5.1); Sodium 136 mmol/L (136-145)
[2024-11-06 18:30] LABS: Bacteria/HPF None Seen HPF (None Seen); CAUTI Indications for Culture Dysuria,urgency,freq; Glucose, Urine (Dipstick) Normal (Negative); Leukocyte Negative Leu/uL (Negative); Protein, Urine (Dipstick) Negative (Neg-Trace); RBC/HPF None Seen HPF (0-3); Specific Gravity, Urine 1.002 (1.002-1.036); WBC/HPF None Seen HPF (0-3)
[2024-11-06 18:31] LABS: Urine Culture Reflex No No
== END 2024-11-06 19:39 | disposition home or self-care (01) ==
LOC: ERS 16:46
DX: M54.2 Cervicalgia (principal); J06.9 Acute upper respiratory infection, unspecified; L08.9 Local infection of the skin and subcutaneous tissue, unspecified; I10 Essential (primary) hypertension
CPT/HCPCS: 71045; 72125; 80053; 81001; 83605; 83690; 83880; 84484; 85025; 87428; 93005; J1885; 96374; 96375; 96376